=== PATIENT | male | born 1990 | race Caucasian/White ===

== ENCOUNTER 2016-12-01 09:21 | Emergency (ER) | payer SELFPAY ==
--- NOTE | 2016-12-01 10:02 | RAD ---
LEFT KNEE 4 VIEWS: Date: 12/01/16 HISTORY: Left knee pain. COMPARISON: None. FINDINGS: No acute fracture or malalignment. Mild sclerosis of the medial compartment. Mild medial soft tissue edema. Small joint effusion. IMPRESSION: Small joint effusion may be reactive or sequelae of internal derangement. No acute fracture or malal ignment. POS: OFF
== END 2016-12-01 11:36 | disposition home or self-care (01) ==
LOC: ERS 09:21 → MERGE 09:21 → ERS 11:36
DX: S86.912A Strain of unspecified muscle(s) and tendon(s) at lower leg level, left leg, initial encounter (principal); X58.XXXA Exposure to other specified factors, initial encounter; Y93.61 Activity, american tackle football